=== PATIENT | male | born 1995 | race Two or more races ===

== ENCOUNTER 2017-04-11 06:11 | Emergency (ER) | payer SELFPAY ==
[2017-04-11 06:20] VITALS: BMI 21.5
[2017-04-11 06:23] VITALS: BP 128/77; PULSE 79; RESP 18; TEMP 97.5; O2SAT 98
--- NOTE | 2017-04-11 06:25 | ED PDOC ---
HPI: Psych/Substance Abuse Time Seen by Provider: 04/11/17 06:17 Chief Complaint (Nursing): Medical Clearance Chief Complaint (Provider): Alcohol Intoxication History Per: Patient History/Exam Limitations: no limitations Modifying Factor(s): Alcohol Additional Complaint(s): Stone Goldman, a 21 year old male, is brought into the ED by police for alcohol intoxication and medical clearance. Patient admits to drinking. Patient denies any medical complaints. Past Medical History Reviewed: Historical Data, Nursing Documentation, Vital Signs Vital Signs: Last Vital Signs Temp 97.5 F L 04/11/17 06:19 Pulse 79 04/11/17 06:19 Resp 18 04/11/17 06:19 BP 128/77 04/11/17 06:19 Pulse Ox 98 04/11/17 06:19 - Medical History PMH: No Chronic Diseases - Family History Family History: States: Unknown Family Hx - Allergies Allergies/Adverse Reactions: Allergies Allergy/AdvReac Type Severity Reaction Status Date / Time azithromycin Allergy RASH Verified 04/11/17 06:18 [From Zithromax Z-Sd] Review of Systems Constitutional: Positive for: Other (Patient denies any medical complaints.) Neurological: Positive for: Other (Gait is steady.). Negative for: Change in Speech Physical Exam - Reviewed Nursing Documentation Reviewed: Yes Vital Signs Reviewed: Yes - Physical Exam Appears: Positive for: Non-toxic, No Acute Distress Head Exam: Positive for: ATRAUMATIC, NORMAL INSPECTION, NORMOCEPHALIC Skin: Positive for: Normal Color, Warm, Dry Eye Exam: Positive for: Normal appearance, EOMI Cardiovascular/Chest: Positive for: Regular Rate, Rhythm Respiratory: Negative for: Respiratory Distress Extremity: Positive for: Normal ROM. Negative for: Deformity, Swelling Neurologic/Psych: Positive for: Alert, Oriented, Gait (steady) - ECG O2 Sat by Pulse Oximetry: 98 (RA) Pulse Ox Interpretation: Normal Medical Decision Making Medical Decision Makin Initial Impression: 21 year old male presenting with alcohol intoxication Initial Plan: Patient is medically cleared. Scribe Attestation Documented by Fabienne Haas acting as a scribe for Medardo Briseno MD. Provider Attestation All medical record entries made by the Scribe were at my direction and personally dictated by me. I have reviewed the chart and agree that the record accurately reflects my personal performance of the history, physical exam, medical decision making, and the department course for this patient. I have also personally directed, reviewed, and agree with the discharge instructions and disposition Disposition - Clinical Impression Clinical Impression: Alcohol intoxication - Patient ED Disposition Is Patient to be Admitted: No Doctor Will See Patient In The: Office Counseled Patient/Family Regarding: Studies Performed, Diagnosis - Disposition Referrals: [facility] [Outside] Disposition: Routine/Home Disposition Time: 06:20 Condition: GOOD Additional Instructions: Patient is medically cleared for incarceration. Instructions: Alcohol Intoxication (ED)
== END 2017-04-11 06:28 | disposition home or self-care (01) ==
LOC: H.ER 06:11
DX: F10.10 Alcohol abuse, uncomplicated (principal)